=== PATIENT | female | born 1965 | race Caucasian/White ===

== ENCOUNTER 2023-12-14 13:15 | Outpatient (OUT) | payer OTHER, SELFPAY ==
--- NOTE | 2023-12-14 14:47 | P.CN_ITS ---
Consult Note: HPI Data of Consult Patient: new to practice Consult date: 12/14/23 Requesting Physician: Lyn Ramsey MD Primary Care Provider: RONAN CAMP Consult Narrative Reason for consult: generalized body pain, upper back pain Narrative: 58yof who presents for evaluation. widespread pain secondary to FQAD. has tried various modalities for this, but has not had any palliation besides high doses of opioids. could not perform PT, has tried ketamine infusion. is currently in PT for fractured right humerus. has history of scoliosis and has been evaluated several times by orthopedic surgeons. she has not had surgery. currently on oxycodone 10mg q4h and xanax 1mg qid. cc:: CC: Lyn Ramsey MD Review of Systems ROS Status of ROS 10 or more systems reviewed and unremark able except as noted in history and below Meds Home Medications and Allergies Home Medications ?Medication ?Instructions ?Recorded ?Confirmed ?Type alprazolam 1 mg tablet (Xanax) 1 mg PO QID 12/14/23 12/14/23 History baclofen 20 mg tablet 20 mg PO QID 12/14/23 12/14/23 History levothyroxine 100 mcg capsule 100 mcg PO DAILY 12/14/23 12/14/23 History oxycodone 10 mg tablet 10 mg PO Q4H PRN pain 12/14/23 12/14/23 History oxycodone 5 mg capsule 5 mg PO Q4H PRN pain 12/14/23 12/14/23 History Exam Narrative Exam Narrative: Psych-alert and oriented x 3.? Attentive and appropriate, constitutionally normal, displays normal mood and affect per situation.? There are no obvious deficits in memory, reasoning, or intellect.? Skin-no obvious rashes, bruising, or erythema noted to the patient's area of pain. Extremities-upper extremities are warm with minimal edema and palpable pulses. Cervical- tenderness to palpation noted in the cervical spine and paraspinal musculature.? Pain is elicited with extension, and lateral rotation of the cervical spine.? Range of motion is slightly diminished due to pain. Coordination remains intact.? Gait remains non-antalgic. Assessment and Plan Assessment and Plan (1) Cervical spondylosis: (2) Thoracic back pain: Qualifiers: Chronicity: chronic Back pain laterality: unspecified Qualified Code(s): M54.6 - Pain in thoracic spine; G89.29 - Other chronic pain (3) Scoliosis: Qualifiers: Scoliosis type: idiopathic Idiopathic scoliosis type: other Spinal region: cervicothoracic Qualified Code(s): M41.23 - Other idiopathic scoliosis, cervicothoracic region Plan 58yof who presents for evaluation. failed conservative measures. has tried a number of therapies in the past for her diagnosed FQAD and CRPS, including ketamine infusion. states that she has not been told she needs back surgery, but needs a new orthopedic surgeon, as hers has retired. i will have her referred to dr. hazel. will also order cervical and thoracic xr. in terms of medications, discussed that we would probably not be a good fit, as i am not willing to prescribe opioids at that dose and while she is taking benzos. she expressed understanding. she will follow up as needed.
== END 2023-12-14 13:16 | disposition home or self-care (01) ==
LOC: PM 13:19
PROVIDERS: PCP Family Medicine; Visit Provider Anesthesiology
DX: M47.812 Spondylosis without myelopathy or radiculopathy, cervical region (principal); M54.6 Pain in thoracic spine; G89.29 Other chronic pain; M41.23 Other idiopathic scoliosis, cervicothoracic region
CPT/HCPCS: G0463